=== PATIENT | male | born 1995 | race Caucasian/White ===

== ENCOUNTER 2016-12-08 20:50 | Emergency (ER) | payer OTHER ==
[~2016-12-08] VITALS: Ht 177.8 cm; Wt 86.2 kg
--- NOTE | 2016-12-08 21:08 | NUR ---
To room 2B.
--- NOTE | 2016-12-08 21:10 | NUR ---
Came in ambulatory c/o laceration of L index and middle fingers. Patient AAO. c/o mild discomfort to affected areas. Pain level 3-4/10.
--- NOTE | 2016-12-08 21:40 | NUR ---
Patient ambulated to bathroom; wound washed with water. Back to bed. L hand soaked with warm water and H2O2.
[2016-12-08] MEDS ORDERED: LIDOCAINE HCL 1% 20 ML VIAL IJ ONE (22:30)
[2016-12-08] MEDS ORDERED: TDAP DIPH,PERTUSS,TET VAC/PF 0.5 ML DISP.SYRIN IM ONE ×2 (22:30→23:08)
[2016-12-08] MEDS ORDERED: CEPHALEXIN MONOHYDRATE 500 MG CAPSULE PO ONE (23:00)
[2016-12-08] MEDS ORDERED: CEPHALEXIN MONOHYDRATE 500 MG CAPSULE ONE (23:17)
--- NOTE | 2016-12-08 23:30 | NUR ---
Patient discharged to home in stable conditon. Written, verbal after care instructions and prescription given. Patient verbalizes understanding of instructions.
[2016-12-08 23:53] VITALS: BP 115/75
== END 2016-12-08 23:35 | disposition home or self-care (01) ==
LOC: ER 20:51
DX: S61.213A Laceration without foreign body of left middle finger without damage to nail, initial encounter (principal); X58.XXXA Exposure to other specified factors, initial encounter; Y93.89 Activity, other specified; Y92.89 Other specified places as the place of occurrence of the external cause; Y99.8 Other external cause status
CPT/HCPCS: 90715; A4217; A4663; J3490